=== PATIENT | female | born 1945 | race Caucasian/White ===

== ENCOUNTER → 2020-09-27 | Outpatient (CLI) | payer MEDICARE, BC ==
--- NOTE | 2020-09-27 17:14 | MR ---
MR brain without contrast HISTORY: H 53.462 Multiplanar multisequence imaging through the brain, no comparisons There is no restricted diffusion. No hemorrhage or hydrocephalus. Confluent and scattered hyperintens ities are present in the periventricular, subcortical, pericallosal and deep white matter. There are normal vascular flow voids. Orbits show symmetric appearance. Inflammatory change present in the sphe noid sinus. There is no hydrocephalus. Low signal rim is present on inversion recovery T2-weighted sequences along the cortex of the right f rontal greater than left frontal brain. The corpus callosum, pituitary, cervical medullary junction, cerebellopontine angles are within normal limits. 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 Age-related izabela nges of atrophy and chronic small vessel ischemia. Consider evaluation for recurrent subarachnoid hem orrhage.
== END | disposition home or self-care (01) ==
LOC: RADMRIMAIN 13:11
PROVIDERS: ATTEND Ophthalmology
DX: I67.82 Cerebral ischemia (principal); G31.9 Degenerative disease of nervous system, unspecified
CPT/HCPCS: 70551